=== PATIENT | male | born 1965 | race African-American/Black ===

== ENCOUNTER 2024-05-23 07:52 | Observation (INO) | payer OTHER ==
[~2024-05-23] VITALS: Ht 188 cm; Wt 68.0 kg
[2024-05-23] VITALS (31 sets, daily range): BP systolic 118–144; BP diastolic 71–120
[2024-05-23 08:32] LABS: BASO% 0.5 % (0-3); EOS% 0.9 % (0-8); HEMATOCRIT 41.6 % (39.0-50.0); HEMOGLOBIN 12.7 g/dl (14.0-18.0); LYMPH% 40.7 % (15-41); MEAN CORPUSCULAR HGB 29.6 pG CALC (26.0-32.0); MEAN CORPUSCULAR HGB CONC 30.5 g/dL CAL (32.0-36.0); MONO% 9.7 % (2-13); NEUT# 1.04 thou/uL (1.82-7.42); NEUT% 48.2 % (42-76); RED BLOOD COUNT 4.29 mill/uL (4.70-6.10); RED CELL DISTRI WIDTH 13.4 % (11.5-15.5)
[2024-05-23 08:47] LABS: INTERNATIONAL NORMALIZED RATIO 1.2 RATIO (0.7-1.3)
[2024-05-23 08:49] LABS: PROTHROMBIN TIME 11.2 SECONDS (9.0-12.5)
[2024-05-23 08:50] LABS: ALBUMIN 4.4 g/dL (3.2-5.0); ALKALINE PHOSPHATASE 52 u/l (38-126); ANION GAP 9 (6-22 (CALC)); BILIRUBIN, TOTAL 0.2 mg/dL (0.2-1.3); BUN 22 mg/dL (9-20); BUN/CREATININE RATIO 26 (12-20 (CALC)); CALCULATED LDLCHOLESTEROL 85 mg/dL (62-129 (CALC)); CARBON DIOXIDE 28 mmol/l (22-30); CHLORIDE 112 mmol/l (95-108); CHOLESTEROL HDL RATIO 2.6 (<4.4 (CALC)); CREATININE 0.8 mg/dL (0.7-1.3); ESTIMATED GFR 102 ML/MIN (>=90 (CALC)); HDL CHOLESTEROL 62 mg/dL (39.0-59.0); POTASSIUM 4.4 mmol/l (3.5-5.1); SGOT/AST 34 u/l (17-59); SODIUM 145 mmol/l (137-146); TOTAL CHOLESTEROL 158 mg/dl (0-199); TOTAL PROTEIN 7.4 g/dL (6.3-8.2); TOTAL TRIGLYCERIDES 58 mg/dl (0-149); VLDL CHOLESTROL 12 mg/dl (8-62 (CALC))
[2024-05-23] MEDS ORDERED: DILANTIN50 MG PO (10:08)
[2024-05-23] MEDS ORDERED: ATORVASTATIN CA20 MG PO (10:09)
[2024-05-23] MEDS ORDERED: AMLODIPINE BESY10 MG PO (10:09)
[2024-05-23] MEDS ORDERED: LOPRESSOR25 M1 PO (10:10)
[2024-05-23] MEDS ORDERED: MAXZIDE-25MG1 COMBO PO (10:11)
[2024-05-23 10:30] LABS: URINE BILIRUBIN - DIPSTICK Negative (NEGATIVE); URINE BLOOD DIPSTICK Negative (NEGATIVE); URINE GLUCOSE - DIPSTICK 100 mg/dL (NEGATIVE); URINE KETONE Trace mg/dL (NEGATIVE); URINE LEUK ESTERASE Negative (NEGATIVE); URINE NITRITE - DIPSTICK Negative (Negative); URINE PH 5.5 (4.5-8.0); URINE PROTEIN - DIPSTICK Negative (NEG-TRACE); URINE SPECIFIC GRAVITY >=1.030; URINE UROBILINOGEN - DIPSTICK 0.2 E.U./dL (0.2)
[2024-05-23 10:38] LABS: URINE COLOR Yellow
[2024-05-23] MEDS ORDERED: ACETAMINOPHEN 325 MG/TAB PO PRN (13:55)
[2024-05-23] MEDS ORDERED: DEXTROSE 250 ML IV PRN (13:55)
[2024-05-23] MEDS ORDERED: SODIUM CHLORIDE 0.9% 1,000 ML IV PRN (13:55)
[2024-05-23] MEDS ORDERED: MAGNESIUM HYDROXIDE 30 ML UDC PO PRN (13:55)
[2024-05-23] MEDS ORDERED: hydrALAZINE HCL 20 MG/ML VIAL(1 ML) IV PRN (14:00)
[2024-05-23] MEDS ORDERED: INSULIN LISPRO 100 UNITS/ML ML SC SCH (17:00)
[2024-05-23] MEDS ORDERED: PHENYTOIN EXTENDED 100 MG/CAP PO SCH (21:00)
[2024-05-23] MEDS ORDERED: ENOXAPARIN SODIUM 40 MG/0.4 ML SYR SC SCH (21:00)
[2024-05-23] MEDS ORDERED: ATORVASTATIN CALCIUM 40 MG/TAB PO SCH (21:00)
[2024-05-23] MEDS ORDERED: METOPROLOL TARTRATE 25 MG/TAB PO SCH (21:00)
[2024-05-24] VITALS (11 sets, daily range): BP systolic 108–127; BP diastolic 55–71
[2024-05-24 04:57] LABS: BASO% 0.4 % (0-3); EOS% 1.2 % (0-8); HEMOGLOBIN 11.4 g/dl (14.0-18.0); LYMPH% 43.4 % (15-41); MEAN CELL VOLUME 93.6 fL CALC (80.0-100.0); MEAN CORPUSCULAR HGB 30.2 pG CALC (26.0-32.0); MEAN CORPUSCULAR HGB CONC 32.3 g/dL CAL (32.0-36.0); MONO% 13.5 % (2-13); NEUT# 1.04 thou/uL (1.82-7.42); NEUT% 41.5 % (42-76); RED BLOOD COUNT 3.77 mill/uL (4.70-6.10); RED CELL DISTRI WIDTH 13.4 % (11.5-15.5)
[2024-05-24 05:00] LABS: HEMATOCRIT 35.3 % (39.0-50.0)
[2024-05-24 05:16] LABS: CREATININE 0.7 mg/dL (0.7-1.3); MAGNESIUM 2.1 mg/dL (1.6-2.3); POTASSIUM 4.3 mmol/l (3.5-5.1); TOTAL PROTEIN 6.1 g/dL (6.3-8.2)
[2024-05-24 05:17] LABS: ALBUMIN 3.5 g/dL (3.2-5.0); BILIRUBIN, TOTAL 0.3 mg/dL (0.2-1.3)
[2024-05-24] MEDS ORDERED: amLODIPine BESYLATE 5 MG/TAB PO SCH (09:00)
[2024-05-24] MEDS ORDERED: LISINOPRIL 20 MG/TAB PO SCH (09:00)
[2024-05-24] MEDS ORDERED: PHENYTOIN 25 MG/ML SUSP PO SCH (09:00)
[2024-05-24] MEDS ORDERED: ASPIRIN 81 MG/TAB PO SCH (09:00)
[2024-05-24] MEDS ORDERED: hydroCHLOROthiazide 12.5 MG/CAP PO SCH (09:00)
[2024-05-25] VITALS: BP 124/76
[2024-05-25 00:12] VITALS: BP 124/76
[2024-05-25 04:57] VITALS: BP 120/71
[2024-05-25 04:59] LABS: BASO% 0.3 % (0-3); HEMOGLOBIN 10.8 g/dl (14.0-18.0); LYMPH% 37.5 % (15-41); MEAN CELL VOLUME 93.5 fL CALC (80.0-100.0); MEAN CORPUSCULAR HGB 30.6 pG CALC (26.0-32.0); MEAN CORPUSCULAR HGB CONC 32.7 g/dL CAL (32.0-36.0); MONO% 9.9 % (2-13); NEUT# 1.6 thou/uL (1.82-7.42); NEUT% 51.3 % (42-76); RED BLOOD COUNT 3.53 mill/uL (4.70-6.10); RED CELL DISTRI WIDTH 13.2 % (11.5-15.5)
[2024-05-25 05:14] LABS: ALBUMIN 3.1 g/dL (3.2-5.0); BILIRUBIN, TOTAL 0.3 mg/dL (0.2-1.3); CREATININE 0.7 mg/dL (0.7-1.3); MAGNESIUM 2.1 mg/dL (1.6-2.3); POTASSIUM 3.8 mmol/l (3.5-5.1); TOTAL PROTEIN 5.7 g/dL (6.3-8.2)
[2024-05-25 07:51] VITALS: BP 137/72
[2024-05-25 11:53] VITALS: BP 133/61
[2024-05-25] MEDS ORDERED: ASPIRIN81 MG PO (13:39)
== END 2024-05-25 16:54 | disposition designated cancer center or children's hospital (05) | DRG 69 ==
LOC: ED 07:52 → ED-I 11:45 → ED 13:33 → MS2 13:34
PROVIDERS: Family Medicine; ADMIT Student in an Organized Health Care Education/Training Program; ATTEND Student in an Organized Health Care Education/Training Program
PROC: 02HV33Z Insertion of Infusion Device into Superior Vena Cava, Percutaneous Approach (ICD-10-PCS; principal; 2024-05-23)
DX: G45.9 Transient cerebral ischemic attack, unspecified (principal); M54.12 Radiculopathy, cervical region; I10 Essential (primary) hypertension; E11.9 Type 2 diabetes mellitus without complications; E78.5 Hyperlipidemia, unspecified; F25.9 Schizoaffective disorder, unspecified; F19.10 Other psychoactive substance abuse, uncomplicated; D72.819 Decreased white blood cell count, unspecified
CPT/HCPCS: G0378; J1650; Q9967